=== PATIENT | male | born 1985 | race American Indian/Alaskan Native ===

== ENCOUNTER 2016-07-03 11:20 | Emergency (ER) | payer SELFPAY ==
[2016-07-03 11:40] VITALS: BP 118/79
--- NOTE | 2016-07-03 11:49 | Emergency Department Report ---
Chief Complaint: Fall Stated Complaint: CHEST PAIN Time Seen by Provider: 07/03/16 11:44 - HPI History of Present Illness: 31 y/o male that came in after sustaining a fall off a 10 foot ladder. He complains chest pain and facial pain. - Exam Vital Signs: Vital Signs 07/03/16 11:34 Temperature 100.2 F H Pulse Rate 114 H Respiratory 20 Rate Blood Pressure 118/79 O2 Sat by Pulse 99 Oximetry Physical Exam: aXo. face has some deformity of his nose with some abrasions to his face. mild tachycardia MSE screening note: Focused history and physical exam performed. Due to findings the following was ordered: Chest pain protocol has been placed. will order facial bone x-ray. Patient will be seen in the main ER ED Disposition for MSE Condition: Stable
[2016-07-03 12:04] LABS: Basophils % (Auto) 0.5 % (0.0-1.8); Eosinophils % (Auto) 0.1 % (0.0-4.3); Hematocrit 36.9 % (35.5-45.6); Hemoglobin 12.3 gm/dl (11.8-15.2); Mean Corpuscular HGB Conc 33 % (32-34); Mean Corpuscular Hemoglobin 29 pg (28-32); Mean Corpuscular Volume 89 fl (84-94); Platelet Count 269 K/mm3 (140-440); Red Blood Count 4.17 M/mm3 (3.65-5.03); Red Cell Distribution Width 13.8 % (13.2-15.2); White Blood Count 9.4 K/mm3 (4.5-11.0)
--- NOTE | 2016-07-03 12:15 | XRay Report ---
Chest 2 views: History: Fall from 10 feet. Findings: No pneumothorax. Faint density left CP may be related to infiltrate or lung contusion. There is minimal pleural reaction noted in the adjacent region. No definite fracture of the ribs in visualized portion. Impression: Left lower lobe density adjacent to the chest wall and CP angle with blunting of left CP angle.
[2016-07-03 12:16] LABS: Anion Gap 15 mmol/L; BUN/Creatinine Ratio 25.71; Blood Urea Nitrogen 18 mg/dL (9-20); Calcium 9.1 mg/dL (8.4-10.2); Carbon Dioxide 26 mmol/L (22-30); Glucose 85 mg/dL (75-100); Potassium 3.8 mmol/L (3.6-5.0); Sodium 138 mmol/L (137-145)
--- NOTE | 2016-07-03 12:16 | XRay Report ---
Facial bones: History blunt trauma to face. Findings: No fracture of the zygomatic arches the orbital wall maxilla mandible and nasal bone. No fluid in right sinus. There is suspicion of fluid noted in the left maxillary sinus. Impression: Findings as detailed above. If clinically indicated CT scan would be recommended.
--- NOTE | 2016-07-03 12:48 | Emergency Department Report ---
ED Fall HPI - General Chief Complaint: Fall Stated Complaint: CHEST PAIN Time Seen by Provider: 07/03/16 11:44 Source: patient Mode of arrival: Ambulatory - History of Present Illness Initial Comments: Patient left prior to my ability to assess. I did review the chest x-ray which appears to be normal. It was also read by the radiologist. Lab studies were noted as well. No specific abnormalities were noted. - Related Data Home Medications Medication Instructions Recorded Confirmed Last Taken Efavirenz/Emtricitab/Tenofovir 1 dose PO HS 07/03/16 07/03/16 07/02/16 [Atripla Tablet] Allergies Allergy/AdvReac Type Severity Reaction Status Date / Time vancomycin Allergy Rash Verified 07/03/16 11:32 ED Review of Systems ROS: Stated complaint: CHEST PAIN Other details as noted in HPI ED Past Medical Hx - Past Medical History Previous Medical History?: Yes Hx Heart Attack/AMI: Yes Hx of Cancer: Yes (lymphoma. Non Hodgkins) Hx Psychiatric Treatment: Yes (Major depression) Hx HIV: Yes Additional medical history: Pleural effusion, Dental caries, MRSA - Surgical History Past Surgical History?: Yes Additional Surgical History: Picc line placed - Social History Smoking Status: Former Smoker Substance Use Type: Prescribed - Medications Home Medications: Home Medications Medication Instructions Recorded Confirmed Last Taken Type Efavirenz/Emtricitab/Tenofovir 1 dose PO HS 07/03/16 07/03/16 07/02/16 History [Atripla Tablet] ED Physical Exam - General Limitations: No Limitations ED Course Vital Signs 07/03/16 07/03/16 11:34 12:21 Temperature 100.2 F H Pulse Rate 114 H Respiratory 20 12 Rate Blood Pressure 118/79 O2 Sat by Pulse 99 Oximetry - Reevaluation(s) Reevaluation #1: 07/03/16 12:47 ECG with sinus tachycardia at 109 bpm normal AL as noted intraventricular conduction delay is noted with an RSR" with L anterior fascicular block is noted as well left axis is noted. Otherwise no acute noted. ED Medical Decision Making - Lab Data Result diagrams: 07/03/16 11:46 07/03/16 11:46 - Radiology Data Radiology results: report reviewed, image reviewed No rib fractures noted. There is some blunting of the left costophrenic angle otherwise unremarkable. Critical care attestation.: If time is entered above; I have spent that time in minutes in the direct care of this critically ill patient, excluding procedure time. ED Disposition Clinical Impression: Fall Disposition: ELOPED Is pt being admited?: No Does the pt Need Aspirin: No Condition: Stable
== END 2016-07-03 12:08 | disposition left against medical advice (07) ==
LOC: ED 11:20
DX: R07.9 Chest pain, unspecified (principal); I25.2 Old myocardial infarction; F32.9 Major depressive disorder, single episode, unspecified; Z85.71 Personal history of Hodgkin lymphoma; Z87.891 Personal history of nicotine dependence; Z88.1 Allergy status to other antibiotic agents; W19.XXXA Unspecified fall, initial encounter; Y93.89 Activity, other specified; Y99.9 Unspecified external cause status; Y92.89 Other specified places as the place of occurrence of the external cause
CPT/HCPCS: 36415; 70150; 71020; 80048; 84484; 85025; 93005; 93010